=== PATIENT | female | born 1975 | race Caucasian/White ===

== ENCOUNTER → 2019-02-19 | Outpatient (CLI) | payer BC ==
--- NOTE | 2019-02-19 13:28 | MR ---
EXAMINATION TYPE: MR brain w con DATE OF EXAM: 02/19/2019 COMPARISON: Outside MRI dated 02/02/2019 HISTORY: diplopia, Abn mri wo TECHNIQUE: Multiplanar, images of the brain and brainstem is performed with IV contrast, utilizing 7.5 mL intrav enous Gadavist . FINDINGS: No abnormal intracranial enhancement is seen. No extra-axial enhancing mass. No dural thick ening. No abnormal enhancement of the optic nerves in this patient with diplopia. Vertebral arteries are codominant. Major intracranial vasculature is well-maintained. Prominent arachnoid granulations i n the superior sagittal sinus. Mucosal retention cysts of the left maxillary sinus measures 1.6 cm. IMPRESSION: No abnormal intracranial enhancement. No evidence of optic neuritis in this patient with diplopia.
== END | disposition home or self-care (01) ==
LOC: RADMRIMAIN 10:51 → MERGE 11:15
PROVIDERS: ATTEND Family Medicine
DX: H53.2 Diplopia (principal)
CPT/HCPCS: 70552; A9585

== ENCOUNTER → 2019-02-23 | Outpatient (CLI) | payer BC ==
--- NOTE | 2019-02-23 23:01 | MR ---
MRI CERVICAL SPINE: CLINICAL HISTORY: Numbness. TECHNIQUE: Multiplanar, multisequence imaging of the cervical spine is performed without IV contrast. COMPARISON: CT cervical spine January 05, 2015 FINDINGS: Sagittal images of the cervical spine show the craniocervical junction to appear within nor mal limits. The cervical and upper thoracic spinal cord is normal in course, caliber, and signal. V ertebral alignment is anatomic. The vertebral body and intravertebral disk heights are normal. Tiny posterior disc herniation C4-C5 and C5-C6 levels with slightly larger posterior disc herniation C6-C7 level noted. The bone marrow signal intensity is within normal limits. Axial images show the C2-C3 and C3-C4 levels to appear within normal limits. Axial images at C4-C5 level show broad-based right paracentral disc protrusion effacing the anterolat eral thecal sac, there is mild right-sided neural foraminal narrowing. Axial images at C5-C6 level shows broad-based central disc protrusion effacing anterior thecal sac, b ilateral neural foramina are patent. Axial images at C6-C7 level show right paracentral disc protrusion effacing the anterolateral thecal sac and causing mild bilateral neural foraminal narrowing. Axial images at C7-T1 level are within normal limits. IMPRESSION: Mild multilevel degenerative changes in cervical spine most prominent at C6-C7 level as d etailed above..
== END ==
LOC: RADMRIMAIN 19:29 → MERGE 20:15
PROVIDERS: ATTEND Psychiatry & Neurology Neurology
DX: M48.02 Spinal stenosis, cervical region (principal); M50.221 Other cervical disc displacement at C4-C5 level; M47.812 Spondylosis without myelopathy or radiculopathy, cervical region
CPT/HCPCS: 72141

== ENCOUNTER → 2019-05-16 | Outpatient (CLI) | payer BC ==
--- NOTE | 2019-05-16 10:49 | MR ---
EXAMINATION TYPE: MR angio head wo/neck wo/w con DATE OF EXAM: 05/16/2019 COMPARISON: None. HISTORY: Ptosis of left eyelid, numbness, dizziness, fatigue TECHNIQUE: Time of flight images focusing on the [place] were performed without contrast.. 2-D and 3-D postprocessing imaging is performed. FINDINGS: There is a normal origin of the great vessels. The vertebral arteries are codominant. There is no significant stenosis in either carotid system. MRA of the [place] has a normal appearance. There is normal arborization of the middle cereb ral artery. The anterior cerebral arteries are unremarkable. The posterior circulation is normal. Nei ther posterior IMPRESSION: 1. NO SIGNIFICANT STENOSIS IN EITHER CAROTID SYSTEM. 2. NORMAL MRA OF THE [place].
== END | disposition home or self-care (01) ==
LOC: RADMRIMAIN 09:05
PROVIDERS: ATTEND Psychiatry & Neurology Neurology
DX: H02.402 Unspecified ptosis of left eyelid (principal)
CPT/HCPCS: 70544; 70549; A9585

== ENCOUNTER → 2021-09-25 | Outpatient (CLI) | payer BC ==
--- NOTE | 2021-09-26 08:15 | MM ---
Reason for Exam: Screening (asymptomatic). Last mammogram was performed 8 year(s) and 11 month(s) ago. Patient History: Menarche at age 15. First Full-Term at age 32. Late child-bearing (after 32). Hormonal Contraceptives, starting at age 20 for 11 years. Paternal grandmother had breast cancer, age 71. Risk Values: Concepcion 5 year model risk: 1.0%. NCI Lifetime model risk: 13.2%. Prior Study Comparison: 10/24/2012 Bilateral Screening Mammogram, [facility]. 10/28/2012 Left Diagnostic Mammogram, [facility]. Tissue Density: The breast tissue is heterogeneously dense. This may lower the sensitivity of mammography. Findings: Analyzed By CAD. There is no suspicious group of microcalcifications or new suspicious mass in either breast. Overall Assessment: Benign, BI-RAD 2 Management: Screening Mammogram of both breasts in 1 year. A clinical breast exam by your physician is recommended on an annual basis and results should be correlated with mammographic findings. Electronically signed and approved by: Claude Felix M.D. Radiologis
== END | disposition home or self-care (01) ==
LOC: RADMAMWWP 12:36
PROVIDERS: ATTEND Family Medicine
DX: Z12.31 Encounter for screening mammogram for malignant neoplasm of breast (principal); Z80.3 Family history of malignant neoplasm of breast
CPT/HCPCS: 77063; 77067

== ENCOUNTER → 2022-09-26 | Outpatient (CLI) | payer BC ==
--- NOTE | 2022-09-27 08:51 | MM ---
Reason for Exam: Screening (asymptomatic). Last screening mammogram was performed 12 month(s) ago. Patient History: Menarche at age 15. First Full-Term at age 32. Late child-bearing (after 32). Patient has history of breast feeding. Hormonal Contraceptives, starting at age 20 for 11 years. Paternal grandmother had breast cancer, age 71. Risk Values: Concepcion 5 year model risk: 1.1%. NCI Lifetime model risk: 13.1%. Prior Study Comparison: 10/24/2012 Bilateral Screening Mammogram, [facility]. 10/28/2012 Left Diagnostic Mammogram, [facility]. 09/25/2021 Bilateral MG 3D screening mammo w/cad, [facility]. Tissue Density: The breast tissue is heterogeneously dense. This may lower the sensitivity of mammography. Findings: Analyzed By CAD. There is no suspicious group of microcalcifications or new suspicious mass in either breast. Overall Assessment: Negative, BI-RAD 1 Management: Screening Mammogram of both breasts in 1 year. . Patient should continue monthly self-breast exams. A clinical breast exam by your physician is recommended on an annual basis. This exam should not preclude additional follow-up of suspicious palpable abnormalities. Note on Concepcion scores and lifetime risk: 1. A Concepcion score greater than 3% is considered moderate risk. If this is the case, consider specialist referral to assess eligibility for a risk reducing agent. 2. If overall lifetime risk for the development of breast cancer is 20% or higher, the patient may qualify for future screening with alternating mammogram and breast MRI. Electronically signed and approved by: Claude Felix M.D. Radiologis
== END | disposition home or self-care (01) ==
LOC: RADMAMWWP 09:45
PROVIDERS: ATTEND Family Medicine
DX: Z12.31 Encounter for screening mammogram for malignant neoplasm of breast (principal); Z80.3 Family history of malignant neoplasm of breast
CPT/HCPCS: 77063; 77067

== ENCOUNTER → 2023-09-30 | Outpatient (CLI) | payer BC ==
--- NOTE | 2023-10-06 13:23 | MM ---
Reason for Exam: Screening (asymptomatic). Last screening mammogram was performed 12 month(s) ago. Patient History: Menarche at age 15. First Full-Term at age 32. Late child-bearing (after 32). Patient has history of breast feeding. Hormonal Contraceptives, starting at age 20 for 11 years. Paternal grandmother had breast cancer, age 71. Risk Values: Concepcion 5 year model risk: 1.1%. NCI Lifetime model risk: 13.0%. Prior Study Comparison: 10/28/2012 Left Diagnostic Mammogram, [facility]. 09/25/2021 Bilateral MG 3D screening mammo w/cad, [facility]. 09/26/2022 Bilateral MG 3D screening mammo w/cad, [facility]. Tissue Density: There are scattered areas of fibroglandular density. Findings: Analyzed By CAD. The pattern is symmetrical. Pattern appears symmetrical and stable. No suspicious groups of microcalcifications, spiculated or lobular masses, architectural distortion or other secondary signs of malignancy are mammographically apparent. Overall Assessment: Benign, BI-RAD 2 Management: Screening Mammogram of both breasts in 1 year. A negative mammogram report should not preclude additional follow up of suspicious palpable abnormalities. Patient should continue monthly self breast exam. A clinical breast exam by your physician is recommended on an annual basis and results should be correlated with mammographic findings. Note on Concepcion scores and lifetime risk: 1. A Concepcion score greater than 3% is considered moderate risk. If this is the case, consider specialist referral to assess eligibility for a risk reducing agent. 2. If overall lifetime risk for the development of breast cancer is 20% or higher, the patient may qualify for future screening with alternating mammogram and breast MRI. Electronically signed and approved by: Tony Laguerre D.O. Radiologis
== END | disposition home or self-care (01) ==
LOC: RADMAMWWP 07:23
PROVIDERS: ATTEND Family Medicine
DX: Z12.31 Encounter for screening mammogram for malignant neoplasm of breast (principal); R92.323 Mammographic fibroglandular density, bilateral breasts; Z80.3 Family history of malignant neoplasm of breast
CPT/HCPCS: 77063; 77067